=== PATIENT | female | born 1960 | race Caucasian/White ===

== ENCOUNTER 2017-02-03 13:07 | Emergency (ER) | payer OTHER ==
[2017-02-03 14:09] LABS: BASOPHILS 0.2 % (0.0-2.0); EOSINOPHILS 1.6 % (0-7); HEMATOCRIT 46.2 % (36.0-48.0); HEMOGLOBIN 15.2 g/dL (12-16); IMMATURE GRANULOCYTES 0.2 % (0-5); LYMPHOCYTES 27.6 % (15-50); MCH 28.9 pg (26.0-34.0); MCHC 32.9 g/dL (31.0-37.0); MCV 87.8 fL (80.0-100.0); MEAN PLATELET VOLUME 10.4 fL (7.4-10.4); MONOCYTES 6.4 % (2-11); PLATELET COUNT 193 10x3/uL (130-400); RBC 5.26 10x6/uL (4.00-5.40); RDW 13.6 % (11.5-14.5); WBC 10.4 10x3/uL (4.8-10.8)
[2017-02-03 14:23] LABS: ALBUMIN 3.6 g/dL (3.4-5.0); ALKALINE PHOSPHATASE 92 U/L (46-116); ALT (SGPT) 21 U/L (10-68); BILIRUBIN - TOTAL 0.25 mg/dL (0.2-1.3); CALC OSMOLALITY 283 mosm/kg (275-300); CALCIUM 9.2 mg/dL (8.5-10.1); CARBON DIOXIDE 23.6 mmol/L (21.0-32.0); CHLORIDE - SERUM 105 mmol/L (98-107); CREATININE - SERUM 0.8 mg/dL (0.6-1.3); GLUCOSE 166 mg/dL (74-106); POTASSIUM - SERUM 4.1 mmol/L (3.5-5.1); PROTEIN - SERUM 7.1 g/dL (6.4-8.2); SODIUM 139 mmol/L (136-145); UREA NITROGEN 18 mg/dL (7-18); eGFR NON AFRICAN AMERICAN 78 mL/min (90-120)
[2017-02-03 14:36] LABS: CHOL - HDL RATIO 5.6 ratio (2.3-4.1); CHOLESTEROL, TOTAL 224 mg/dL (0-200); CKMB 1.6 U/L (0.0-3.6); CREATINE KINASE 74 UL (21-215); HDL CHOLESTEROL 40 mg/dL (32-96); LDL CHOLESTEROL 168 mg/dL (0-100); LDL-HDL RATIO 4.2 ratio (1.5-3.5); TRIGLYCERIDE 83 mg/dL (30-200)
[2017-02-03 14:39] LABS: TROPONIN-I < 0.017 ng/mL (0.000-0.060)
== END 2017-02-03 16:05 | disposition home or self-care (01) ==
LOC: D.ER 13:07
PROVIDERS: Emergency Medicine
DX: R07.89 Other chest pain (principal); M94.0 Chondrocostal junction syndrome [Tietze]; R09.1 Pleurisy; E11.9 Type 2 diabetes mellitus without complications; I10 Essential (primary) hypertension; F32.9 Major depressive disorder, single episode, unspecified; E78.00 Pure hypercholesterolemia, unspecified; F17.200 Nicotine dependence, unspecified, uncomplicated

== ENCOUNTER → 2017-06-18 08:34 | Outpatient (CLI) | payer OTHER ==
[2011-02-08 16:53] VITALS: BMI 35.5
--- NOTE | ~2017-06-18 | EMG ---
PATIENT:KAYLENE JIMENEZ DATE OF SERVICE: 06/18/17 MEDICAL RECORD: [id number] DATE OF : 60 LOCATION: [facility] ADMISSION DATE: REFERRING PHYSICIAN: RUTH ANN MONTES DO INTERPRETING PHYSICIAN: BRITTANY SHERMAN MD DATE OF SERVICE: 06/18/2017 Electromyographic Report Referred as an outpatient by Dr. Montes. ELECTROMYOGRAPHIC DATA: Electromyographic examination is limited to both lower extremities. In the right lower extremity, right peroneal motor stimulation elicits a compound motor action potential with a distal latency of 4.2 milliseconds, peak amplitude of 3 millivolts, and calculated conduction velocity of 47 meters per second. Right tibial motor stimulation elicits a compound motor action potential with a distal latency of 4.6 milliseconds, peak amplitude of 4 millivolts, and calculated conduction velocity of 45 meters per second. Antidromic right sural sensory stimulation elicits a response with a distal latency of 4.5 milliseconds, amplitude of 3 microvolts and calculated conduction velocity of 42 meters per second. The right lower extremity H reflex recording at gastrocsoleus has a latency of 34 milliseconds. In the left lower extremity, left peroneal motor stimulation elicits a compound motor action potential with a distal latency of 4.2 milliseconds, peak amplitude of 2 millivolts and calculated conduction velocity of 41 meters per second. Left tibial motor stimulation elicits a compound motor action potential with a distal latency of 5.5 milliseconds, peak amplitude of 8 millivolts, and calculated conduction velocity of 44 meters per second. Antidromic left sural sensory stimulation elicits no reliable response. The left lower extremity H reflex recording at gastrocsoleus has a latency of 33 milliseconds. Needle electrode examination is limited to both lower extremities as well. Muscles interrogated include the abductor hallucis, extensor digitorum brevis, abductor digiti quinti, tibialis anterior, medial gastrocnemius, vastus lateralis, semitendinosis and gluteus shiv. There is no abnormality of insertional activity and no abnormal spontaneous activity is seen in all muscles interrogated. Motor unit potential morphology and the pattern of motor unit potential firing and recruitment is normal in all muscles sampled. IMPRESSION: Electromyographic examination of both lower extremities is normal with the exception of mild prolongation of the H reflexes bilaterally and the absence of the left sural sensory response. All other values are within normal limits, though the calculated conduction velocities are at or just above the lower limits of normal. 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 There is no electrical evidence of a lumbosacral radiculopathy or other lesion of the lower motor neuron in the lower extremities at this time. There is no evidence for active denervation. TRANSINT:[id number] Voice Confirmation ID: [id number] DOCUMENT ID: [id number] ELECTROMYGRAM/NERVE CONDUCTION [id number] KAYLENE JIMENEZ DONALD P MD CC: [id number] DICTATION DATE: 06/19/17 075 MAINTENANCE ASSOCIATE: 06/19/17 221 DEP CLI 06/18/17 [place] [id number] [place] [address]
== END | disposition home or self-care (01) ==
LOC: D.CN 08:30
DX: G62.9 Polyneuropathy, unspecified (principal)

== ENCOUNTER → 2018-07-28 16:38 | Outpatient (CLI) | payer OTHER ==
[2011-02-08 16:53] VITALS: BMI 35.5
== END | disposition home or self-care (01) ==
LOC: D.MAMMO 11:15
DX: Z12.31 Encounter for screening mammogram for malignant neoplasm of breast (principal)

== ENCOUNTER → 2019-02-25 09:07 | Outpatient (CLI) | payer OTHER ==
[2011-02-08 16:53] VITALS: BMI 35.5
--- NOTE | ~2019-02-25 | ST ---
PATIENT:KAYLENE JIMENEZ MEDICAL RECORD: [id number] SEX: F LOCATION:[facility] ORDER #: ADMISSION DATE: 02/25/19 AGE OF PATIENT: 58 REFERRING PHYSICIAN: INTERPRETING PHYSICIAN: RACHELE ROBERTS MD DATE OF SERVICE: 02/25/2019 Nuclear Stress Testing INDICATION: Angina and coronary artery disease. She was exercised on standard Lexiscan protocol with 32 mCi of sestamibi injected at peak stress, 11 mCi used previously for rest images. FINDINGS: Gated SPECT reveals preserved ejection fraction at 68% with good wall motion and thickening and brightening throughout all segments. SPECT imaging Cardiolite was used as myocardial fusion agent. There is homogeneous uptake throughout all segments at rest and stress with no evidence of inducible ischemia or previous infarction. OVERALL IMPRESSION: 1. This is a normal nuclear stress test with no evidence of inducible ischemia or previous infarction. 2. Gated SPECT reveals a preserved ejection fraction at 68%. In this patient with ongoing symptomatology, the current scan does not suggest the presence of hemodynamically significant coronary artery disease. Evaluate noncardiac etiology of chest pain. TRANSINT:[id number] Voice Confirmation ID: [id number] DOCUMENT ID: [id number] RACHELE ROBERTS MD CC: RUTH ANN BLAKE DO [id number] DICTATION DATE: 02/25/19 1621 CONVERSION DEVELOPER: 02/26/19 0446 DEP CLI 02/25/19 [facility] [address] [place] [address]
== END | disposition home or self-care (01) ==
LOC: D.HCCARDIO 09:07
PROVIDERS: ATTEND Internal Medicine Cardiovascular Disease
DX: I25.119 Atherosclerotic heart disease of native coronary artery with unspecified angina pectoris (principal)

== ENCOUNTER → 2019-03-13 14:43 | Outpatient (CLI) | payer OTHER ==
[2011-02-08 16:53] VITALS: BMI 35.5
== END | disposition home or self-care (01) ==
LOC: D.CT 14:43
PROVIDERS: ATTEND Internal Medicine Cardiovascular Disease
DX: R94.39 Abnormal result of other cardiovascular function study (principal)

== ENCOUNTER → 2019-03-16 14:31 | Outpatient (CLI) | payer OTHER ==
[2011-02-08 16:53] VITALS: BMI 35.5
== END | disposition home or self-care (01) ==
LOC: D.CT 14:31
PROVIDERS: ATTEND Family Medicine
DX: R94.39 Abnormal result of other cardiovascular function study (principal)

== ENCOUNTER 2020-08-16 15:00 | Outpatient (CLI) | payer OTHER ==
[2011-02-08 16:53] VITALS: BMI 35.5
== END 2020-08-16 23:59 | disposition home or self-care (01) ==
LOC: D.MAMMO 15:00
PROVIDERS: ATTEND Family Medicine
DX: Z12.31 Encounter for screening mammogram for malignant neoplasm of breast (principal)